=== PATIENT | female | born 1940 | race Caucasian/White ===

== ENCOUNTER → 2020-09-30 | Day surgery (SDC) | payer MEDICARE ==
[~2020-09-30] MED LIST: 3IN1 COMMODE; ACETAMINOPHEN500 M1 PO; ATARAX25 MG PO; BREO ELLIPTA 11 EACH INH; INCRUSE ELLI62.5 MCG INH; MEDROL 4MG DOSEP4 MG PO; MULTI COMPLETE1 EACH PO; NORCO 5-325 TA1 EACH PO; PRINIVIL10 MG PO; SYNTHROID75 MCG PO; VENTOLIN HFA IN18 GM INH; VOLTAREN **OUT75 MG PO; ZOCOR40 MG PO; ZOLOFT100 MG PO
[2020-09-30 10:51] LABS: HCT 30.1 % (37.0-47.0); MCH 34.5 pg (25.0-31.0); MCHC 33.2 g/dL (32.0-36.0); MCV 103.8 fL (78.0-100.0); MPV 9.7 fL (6.0-9.5); RBC 2.9 M/uL (4.20-5.40); RDW 13.8 % (11.5-14.0); WBC 4.7 K/uL (4.0-10.5)
[2020-09-30 11:55] LABS: BILIRUBIN - TOTAL 0.4 mg/dL (0.2-1.0); BUN/CREAT RATIO (CALC) 24.3 RATIO; CREATININE 1.36 mg/dL (0.51-0.95); GLOBULIN (CALCULATION) 2.6 g/dL; POTASSIUM 4.8 mmol/L (3.5-5.1); TOTAL PROTEIN 6.6 g/dL (6.4-8.2)
== END | disposition home or self-care (01) ==
LOC: FAS 09:38
PROVIDERS: Surgery
DX: D46.1 Refractory anemia with ring sideroblasts (principal); D50.9 Iron deficiency anemia, unspecified; D75.89 Other specified diseases of blood and blood-forming organs; K62.5 Hemorrhage of anus and rectum; M19.90 Unspecified osteoarthritis, unspecified site; E03.9 Hypothyroidism, unspecified; E78.00 Pure hypercholesterolemia, unspecified; J44.9 Chronic obstructive pulmonary disease, unspecified; Z20.822 Contact with and (suspected) exposure to COVID-19; Z98.890 Other specified postprocedural states; Z90.710 Acquired absence of both cervix and uterus; Z79.899 Other long term (current) drug therapy; Z87.891 Personal history of nicotine dependence; Z80.9 Family history of malignant neoplasm, unspecified
CPT/HCPCS: 36415; 80053; 88305; 88341; 88342; J1642; J2704; J7120

== ENCOUNTER 2021-03-26 14:33 | Emergency (ER) | payer OTHER, MEDICARE ==
[2021-03-26 16:47] LABS: EOSINOPHIL 2.8 % (0-7); HCT 33.2 % (37.0-47.0); HGB 10.7 g/dl (12.5-16.0); LYMPHOCYTE 27.7 % (15-48); MCH 33.4 pg (25.0-31.0); MCHC 32.2 g/dL (32.0-36.0); MCV 103.8 fL (78.0-100.0); MONOCYTE 6.2 % (0-12); MPV 9.9 fL (6.0-9.5); NEUTROPHIL 61.5 % (41-80); NRBC 0; PLT 147 K/uL (150-400); RDW 13.7 % (11.5-14.0); WBC 3.9 K/uL (4.0-10.5)
[2021-03-26] MEDS ORDERED: NORCO 5-325 TA1 EACH PO (17:21)
[2021-03-26 17:22] LABS: BILIRUBIN - TOTAL 0.4 mg/dL (0.2-1.0); BUN/CREAT RATIO (CALC) 32.2 RATIO; CREATININE 1.15 mg/dL (0.51-0.95); GLOBULIN (CALCULATION) 2.5 g/dL; POTASSIUM 4.8 mmol/L (3.5-5.1); TOTAL PROTEIN 6.5 g/dL (6.4-8.2)
== END 2021-03-26 17:44 | disposition home or self-care (01) ==
LOC: FER 14:33
PROVIDERS: Emergency Medicine
DX: S16.1XXA Strain of muscle, fascia and tendon at neck level, initial encounter (principal); S20.214A Contusion of middle front wall of thorax, initial encounter; I10 Essential (primary) hypertension; J44.9 Chronic obstructive pulmonary disease, unspecified; V43.52XA Car driver injured in collision with other type car in traffic accident, initial encounter; Y92.410 Unspecified street and highway as the place of occurrence of the external cause
CPT/HCPCS: 36415; 71250; 72125; 80053; 85025

== ENCOUNTER 2021-12-09 16:02 | Emergency (ER) | payer MEDICARE ==
[2021-12-09 17:08] LABS: EOSINOPHIL 3.8 % (0-7); HCT 37.6 % (37.0-47.0); HGB 12.1 g/dl (12.5-16.0); LYMPHOCYTE 25.1 % (15-48); MCHC 32.2 g/dL (32.0-36.0); MCV 105.6 fL (78.0-100.0); MONOCYTE 6.3 % (0-12); MPV 9.9 fL (6.0-9.5); NEUTROPHIL 63.6 % (41-80); NRBC 0.4; PLT 218 K/uL (150-400); RBC 3.56 M/uL (4.20-5.40); RDW 14.6 % (11.5-14.0); WBC 5.1 K/uL (4.0-10.5)
[2021-12-09 17:23] LABS: ALBUMIN 3.6 g/dL (3.4-5.0); BILIRUBIN - TOTAL 0.3 mg/dL (0.2-1.0); CREATININE 1.21 mg/dL (0.51-0.95); GLOBULIN (CALCULATION) 2.7 g/dL; TOTAL PROTEIN 6.3 g/dL (6.4-8.2)
[2021-12-09 17:32] LABS: POTASSIUM 5.2 mmol/L (3.5-5.1)
[2021-12-09] MEDS ORDERED: ONDANSETRON ODT4 MG PO (17:43)
== END 2021-12-09 17:55 | disposition home or self-care (01) ==
LOC: FER 16:02
PROVIDERS: Emergency Medicine
DX: R11.2 Nausea with vomiting, unspecified (principal); I10 Essential (primary) hypertension
CPT/HCPCS: 36415; 74022; 80053; 85025; 93005